=== PATIENT | female | born 1990 | race Caucasian/White ===

== ENCOUNTER 2019-08-13 13:18 | Emergency (ER) | payer OTHER ==
[2019-08-13 13:49] LABS: #Lymphocytes 1.1 thou/uL (1.20-3.40); #Monocytes 0.2 thou/uL (0.11-0.59); #Neutrophils 7.3 thou/uL (1.40-6.50); %Basophils 0.2 % (0.0-1.0); %Eosinophils 0.3 % (0.0-10.0); %Lymphocytes 12.5 % (21.0-51.0); %Monocytes 2.8 % (0.0-10.0); %Neutrophils 84.2 % (42.0-75.0); Mean Corpuscular HGB CONC 34.3 g/dL (32.0-36.0); Mean Corpuscular Hemoglobin 32.4 pg (27.0-31.0); Mean Corpuscular Volume 94.5 fL (78.0-98.0); Mean Platelet Volume 7.5 fL (7.4-10.4); Platelet Count 246 thou/uL (130-400); RBC Distribution Width 10.9 % (11.5-14.5); Red Blood Cell (RBC) Count 4.33 mill/uL (4.20-5.40); White Blood Cell (WBC) Count 8.6 thou/uL (4.8-10.8)
[2019-08-13] MEDS ORDERED: Ketorolac Tromethamine 30 MG/ML VIAL ONE (13:59)
[2019-08-13] MEDS ORDERED: diphenhydrAMINE 50 MG/ML VIAL ONE (13:59)
[2019-08-13] MEDS ORDERED: Metoclopramide HCl 10 MG/2 ML VIAL ONE (13:59)
[2019-08-13 14:06] LABS: BHCG - Serum Negative (NEGATIVE); Pregs Control Background? CLEAR/WHITE (CLR/WHITE); Pregs Control Bar Appear? YES (CONTROL BAR)
[2019-08-13 14:11] LABS: ALT (SGPT) 11 U/L (8-55); AST (SGOT) 18 U/L (5-34); Albumin 4.3 g/dL (3.5-5.0); Alkaline Phosphatase 71 U/L (40-110); Anion Gap 14 mmol/L (10-20); BUN (Urea Nitrogen) 8 mg/dL (7.0-18.7); Bilirubin, Total 0.3 mg/dL (0.2-1.2); Calc. Creatinine Clearance 0 mL/min (70-130); Calcium 9.9 mg/dL (7.8-10.44); Carbon Dioxide 25 mmol/L (22-29); Chloride 103 mmol/L (98-107); Estimated GFR-MDRD Greater than 90; Globulin 3.7 g/dL (2.4-3.5); Glucose 104 mg/dL (70-105); Potassium 3.9 mmol/L (3.5-5.1); Sodium 138 mmol/L (136-145)
--- NOTE | 2019-08-13 14:40 | CT ---
CT BRAIN PERFORMED WITHOUT CONTRAST ENHANCEMENT: History: Headache x two days. FINDINGS: The ventricular and cisternal system is within normal limits. There are no signs of intracerebral hem orrhage or extraaxial fluid collections. The mastoid air cells and visualized sinuses are clear. IMPRESSION: No acute intracranial abnormalities. POS: [facility]
== END 2019-08-13 15:34 | disposition home or self-care (01) ==
LOC: ERS 13:18
DX: R51 Headache (principal); Z79.899 Other long term (current) drug therapy
CPT/HCPCS: 70450; 80053; 84703; 85025; 96365; 96375; J1200; J1885; J2765

== ENCOUNTER 2019-10-27 12:50 | Inpatient (IN) | payer OTHER ==
[2019-10-27] MEDS ORDERED: Metoclopramide HCl 10 MG/2 ML VIAL ONE (13:10)
[2019-10-27] MEDS ORDERED: diphenhydrAMINE 50 MG/ML VIAL ONE (13:10)
[2019-10-27 13:20] LABS: #Eosinphils 0.1 thou/uL (0.0-0.7); #Lymphocytes 1.8 thou/uL (1.20-3.40); #Monocytes 0.3 thou/uL (0.11-0.59); #Neutrophils 5.4 thou/uL (1.40-6.50); %Basophils 0.2 % (0.0-1.0); %Lymphocytes 23.9 % (21.0-51.0); %Neutrophils 70.8 % (42.0-75.0); Mean Corpuscular HGB CONC 34.2 g/dL (32.0-36.0); Mean Corpuscular Hemoglobin 32.2 pg (27.0-31.0); Mean Corpuscular Volume 94.1 fL (78.0-98.0); Mean Platelet Volume 7.8 fL (7.4-10.4); Platelet Count 243 thou/uL (130-400); RBC Distribution Width 10.9 % (11.5-14.5); Red Blood Cell (RBC) Count 4.05 mill/uL (4.20-5.40); White Blood Cell (WBC) Count 7.6 thou/uL (4.8-10.8)
[2019-10-27] MEDS ORDERED: Ondansetron PF 4 MG/2 ML Vial ONE (13:23)
--- NOTE | 2019-10-27 13:23 | CT ---
CT Brain WO Con History: Strokelike symptoms from operating room Comparison: None. Findings: No acute hemorrhage or infarct. No midline shift or mass effect. Ventricular size and extra -axial CSF spaces are normal. The calvarium is intact. Paranasal sinuses and mastoids are clear. Globes are intact. Impression: No acute intracranial abnormality.
[2019-10-27 13:32] LABS: PTT 31.3 sec (22.9-36.1); Prothrombin Time 13.3 sec (12.0-14.7)
[2019-10-27 13:43] LABS: ALT (SGPT) 19 U/L (8-55); AST (SGOT) 23 U/L (5-34); Albumin 4.4 g/dL (3.5-5.0); Alkaline Phosphatase 70 U/L (40-110); Anion Gap 15 mmol/L (10-20); BUN (Urea Nitrogen) 12 mg/dL (7.0-18.7); Bilirubin, Total 0.5 mg/dL (0.2-1.2); CK (CPK) 115 U/L (29-168); Calc. Creatinine Clearance 0 mL/min (70-130); Calcium 9.7 mg/dL (7.8-10.44); Carbon Dioxide 23 mmol/L (22-29); Chloride 102 mmol/L (98-107); Estimated GFR-MDRD 85; Globulin 2.9 g/dL (2.4-3.5); Glucose 95 mg/dL (70-105); Potassium 3.6 mmol/L (3.5-5.1); Protein, Total 7.3 g/dL (6.0-8.3); Sodium 136 mmol/L (136-145)
[2019-10-27 14:35] LABS: BHCG - Serum Negative (NEGATIVE); Pregs Control Background? CLEAR/WHITE (CLR/WHITE); Pregs Control Bar Appear? YES (CONTROL BAR)
[2019-10-27] MEDS ORDERED: Aspirin 325 MG TAB ONE (14:39)
[2019-10-27] MEDS ORDERED: Ondansetron ODT 8 MG TAB SL PRN (15:38)
--- NOTE | 2019-10-27 16:25 | PDOC.HHP ---
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 Pt reports that she was working in the hospital today and had a migraine at 11am. Her migraine symptoms included global head pain, blurry vision , and photophobia. Migraine described as throbbing. Pt took Aleve and Excedrin at 11:30 with minimal improvement in her symptoms. At approximately noon, she became acutely confused, noticed tingling in her L arm with numbness and heaviness following. At the same time she felt the left side of her face become numb to the midline. Co-workers witnessed a L facial droop when they asked the pt to smile. Symptoms lasted approximately 15-20 minutes and are now completely resolved. 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 Her last seizure was in 2018. She has had them since she was 2 years old intermittently and reports they are well controlled on Vimpat. She follows with neurologist Dr. Wynn at [facility]. She denied fevers, chills, neck stiffness, dysphagia, drooling, leg numbness Her prior migraines started a few months ago with the first being mild throbbing with photosensitivity. The second migraine awoke patient from sleep and she described as "worst headache of my life" prompting an ER visit on . Head CT at that time was negative. She received abortive medications and was discharged. Pt uses an IUD for control, is a non-smoker and denies history of hypertension. Denies family history of strokes, clots, or blood disorders. Does report family history of heart disease on her mother's side. ED Course: In the ED, head CT showed no acute abnormalities. EKG showed NSR with no ischemic changes. Initial labs including CMP, CBC, and troponin were all wnl. Blood glucose 95. Pt received ASA 325 mg, and migraine cocktail including metoclopramide, benadryl, and zofran. Pt had complete resolution of her symptoms so tpa was not warranted on arrival to the ED. Hospitalist ROS - Review of Systems Constitutional: denies: fever, chills, sweats, weakness, malaise, other Eyes: reports: vision change (blurry). denies: pain, conjunctivae inflammation , eyelid inflammation, redness, other ENT: denies: ear pain, ear discharge, nose pain, nose discharge, nose congestion , mouth pain, mouth swelling, throat pain, throat swelling, other Respiratory: denies: cough, dry, shortness of breath, hemoptysis, SOB with excertion, pleuritic pain, sputum, wheezing, other Cardiovascular: denies: chest pain, palpitations, orthopnea, paroxysmal noc. dyspnea, edema, light headedness, other Gastrointestinal: denies: nausea, vomiting, abdominal pain, diarrhea, constipation, melena, hematochezia, other Genitourinary: denies: dysuria, frequency, incontinence, hematuria, retention, other Musculoskeletal: denies: neck pain, shoulder pain, arm pain, back pain, hand pain, leg pain, foot pain, other Skin: denies: rash, lesions, paddy, bruising, other Neurological: reports: weakness, numbness, confusion, seizures. denies: incoordination, change in speech Hospitalist History - Past Medical History Cardiac: reports: no pertinent history Pulmonary: reports: no pertinent history [employer]: reports: Migraine, Seizure Gastrointestinal: reports: no pertinent history Heme/Onc: reports: no pertinent history Hepatobiliary: reports: no pertinent history Psych: reports: no pertinent history Musculoskeletal: reports: no pertinent history Rheumatologic: reports: no pertinent history Infectious Disease: reports: no pertinent history ENT: reports: no pertinent history Renal/: reports: no pertinent history Endocrine: reports: no pertinent history Dermatology: reports: no pertinent history - Past Surgical History Other Surgical History: Ankle ligamentous repair - Family History Family History: reports: cardiac disorder (Maternal Grandmother with CABG) - Social History Smoking Status: Former smoker (Former social smoker >4 years ago SMoked marijuana one month ago) Alcohol: reports: Occassional Drugs: reports: none Living Situation: With Family Occupation: Patient is an OR nurse at [employer] Activity level: independent ambulation - Exam General Appearance: NAD, awake alert Eye: PERRL, anicteric sclera ENT: normocephalic atraumatic, no oropharyngeal lesions, moist mucosa Neck: supple, symmetric, no JVD, no thyromegaly, no lymphadenopathy, no carotid bruit Heart: RRR, no murmur, no gallops, no rubs, normal peripheral pulses Respiratory: CTAB, no wheezes, no rales, no ronchi, normal chest expansion, no tachypnea, normal percussion Gastrointestinal: soft, non-tender, non-distended, normal bowel sounds, no palpable masses, no hepatomegaly, no splenomegaly, no bruit Extremities: no cyanosis, no clubbing, no edema Skin: normal turgor, no lesions, no rashes Neurological: cranial nerve grossly intact, normal sensation to touch, no weakness, no focal deficits Neurological - other findings: FTN nl, BRETT intact, no visual deficits, reflexes 2+ Musculoskeletal: normal tone, normal strength, no muscle wasting Psychiatric: normal affect, normal behavior, A&O x 3 Hospitalist Results - Labs Result Diagrams: 10/27/19 13:11 10/28/19 05:15 Lab results: WBC 7.6 thou/uL (4.8-10.8) 10/27/19 13:11 Hgb 13.0 g/dL (12.0-16.0) 10/27/19 13:11 Hct 38.1 % (36.0-47.0) 10/27/19 13:11 MCV 94.1 fL (78.0-98.0) 10/27/19 13:11 Plt Count 243 thou/uL (130-400) 10/27/19 13:11 Neutrophils % 70.8 % (42.0-75.0) 10/27/19 13:11 Sodium 136 mmol/L (136-145) 10/27/19 13:11 Potassium 3.6 mmol/L (3.5-5.1) 10/27/19 13:11 Chloride 102 mmol/L (98-107) 10/27/19 13:11 Carbon Dioxide 23 mmol/L (22-29) 10/27/19 13:11 BUN 12 mg/dL (7.0-18.7) 10/27/19 13:11 Creatinine 0.79 mg/dL (0.6-1.1) 10/27/19 13:11 Glucose 95 mg/dL (70-105) 10/27/19 13:11 Calcium 9.7 mg/dL (7.8-10.44) 10/27/19 13:11 Total Bilirubin 0.5 mg/dL (0.2-1.2) 10/27/19 13:11 AST 23 U/L (5-34) 10/27/19 13:11 ALT 19 U/L (8-55) 10/27/19 13:11 Alkaline Phosphatase 70 U/L (40-110) 10/27/19 13:11 Creatine Kinase 115 U/L (29-168) 10/27/19 13:11 Troponin I Less than 0.010 ng/mL (< 0.028) 10/27/19 13:11 Serum Total Protein 7.3 g/dL (6.0-8.3) 10/27/19 13:11 Albumin 4.4 g/dL (3.5-5.0) 10/27/19 13:11 Laboratory Tests 10/27/19 10/27/19 10/27/19 12:59 13:11 13:11 WBC RBC Hgb Hct MCV MCH MCHC RDW Plt Count MPV Neutrophils % Lymphocytes % Monocytes % Eosinophils % Basophils % Neutrophils # Lymphocytes # Monocytes # Eosinophils # Basophils # PT INR APTT Sodium 136 Potassium 3.6 Chloride 102 Carbon Dioxide 23 Anion Gap 15 BUN 12 Creatinine 0.79 Estimated GFR (MDRD) 85 Glucose 95 POC Glucose 95 Calcium 9.7 Total Bilirubin 0.5 AST 23 ALT 19 Alkaline Phosphatase 70 Creatine Kinase 115 Troponin I Less than 0.010 Serum Total Protein 7.3 Albumin 4.4 Globulin 2.9 Albumin/Globulin Ratio 1.5 Serum , Qual Blood Type Antibody Screen 10/27/19 10/27/19 10/27/19 13:11 13:11 13:11 WBC 7.6 RBC 4.05 L Hgb 13.0 Hct 38.1 MCV 94.1 MCH 32.2 H MCHC 34.2 RDW 10.9 L Plt Count 243 MPV 7.8 Neutrophils % 70.8 Lymphocytes % 23.9 Monocytes % 4.0 Eosinophils % 1.0 Basophils % 0.2 Neutrophils # 5.4 Lymphocytes # 1.8 Monocytes # 0.3 Eosinophils # 0.1 Basophils # 0.0 PT INR APTT Sodium Potassium Chloride Carbon Dioxide Anion Gap BUN Creatinine Estimated GFR (MDRD) Glucose POC Glucose Calcium Total Bilirubin AST ALT Alkaline Phosphatase Creatine Kinase Troponin I Serum Total Protein Albumin Globulin Albumin/Globulin Ratio Serum , Qual Negative Blood Type O POSITIVE Antibody Screen NEGATIVE 10/27/19 10/27/19 13:12 13:25 WBC RBC Hgb Hct MCV MCH MCHC RDW Plt Count MPV Neutrophils % Lymphocytes % Monocytes % Eosinophils % Basophils % Neutrophils # Lymphocytes # Monocytes # Eosinophils # Basophils # PT 13.3 INR 1.0 APTT 31.3 Sodium Potassium Chloride Carbon Dioxide Anion Gap BUN Creatinine Estimated GFR (MDRD) Glucose POC Glucose Calcium Total Bilirubin AST ALT Alkaline Phosphatase Creatine Kinase Troponin I Serum Total Protein Albumin Globulin Albumin/Globulin Ratio Serum , Qual Blood Type O POSITIVE Antibody Screen - Radiology Interpretation CT scan - head Status: image reviewed by me (No acute abnormalities) Hospitalist H&P A/P - Problem (1) TIA (transient ischemic attack) Code(s): G45.9 - TRANSIENT CEREBRAL ISCHEMIC ATTACK, UNSPECIFIED Status: Acute (2) Seizure disorder Code(s): G40.909 - EPILEPSY, UNSP, NOT INTRACTABLE, WITHOUT STATUS EPILEPTICUS Status: Acute (3) Migraine Code(s): G43.909 - MIGRAINE, UNSP, NOT INTRACTABLE, WITHOUT STATUS MIGRAINOSUS Status: Acute - Plan Plan: CT CXr RM Assessment: This is a 29 year old female with migraines, seizure disorder that presented with transient left arm numbness/weakness/facial droop and severe headache that resolved, admitted for stroke rule out #Left facial droop #LUE numbness - she presented with transient L arm numbness/weakness and L facial numbness and facial droop lasting 15-[address] in ED negative. Initial labs do not show any electrolyte abnormalities. Symptoms now completely resolved with a benign neuro exam. Differential includes most likely complex migraine vs seizure vs TIA. No family history, OCP use, or hx of hypertension. Does report that she was a former smoker >4 years ago and only smoked socially. PLAN: -Telemetry -MRI brain -Neurology consult -Lipid panel, HgA1c, TSH -Repeat CMP, CBC in am -q4 neuro checks -Stroke floor -Consider ECHO with bubble study to assess for PFO Migraine Recent hx of migraines beginning a few months ago. Pt only reports 2 prior migraines including a prior ER visit with nl CT scan for headache that awoke her from sleep. Migraine today was self-treated with Aleve and Excedrin. Pt also received migraine cocktail (zofran, metaclopramide, benadryl) in ED with resolution of her symptoms. Focal deficits could be attributable to complex migraine. PLAN: - reglan prn for headache -Zofran 4 mg PRN nausea -Continue to monitor Seizure Disorder History of seizure disorder, well controlled on Vimpat. Pt follows with neurologist Dr. Wynn from [facility]. Pt describes complex partial seizures. ?Ricardo's Paralysis, although history seems more consistent with complex migraine PLAN: -Continue Vimpat 100 mg qam, 50 mg qpm -Neurology consult -q4 neurochecks DVT prophylaxis: no pharm since pt low risk, SCDs, encourage ambulation FULL CODE Case discussed with attending physician Dr. Mendez. -----Addendum-------- I saw and evaluated patient with PA and agree with assessment and plan Patient reports acute headache that started where she felt the schedule she was reading was very bright. Headache was frontal, throbbing, bilateral and pulsating. She also had photophobia, nausea but no vomiting. She had no neck stiffness or rigidity. No fevers or chills. Her headache improved some after NSAIDS but not much. An hour later she got left facial droop, and arm numbness/ weakness. She was unable to lift up her left arm. She immediately ran and called her welfare supervisor and another doctor who advised her to go to the ER. After coming to the ER, she received migraine cocktail. Her arm numbness wenta way after twenty minutes, but headache lasted longer but eventually resolved as well. She denied dysphagia, dysarthria, leg weakness, gait instability Physical exam: Vitals: stable Neuro: CN II-XII intact. Normal cerebellar exam. 1+ patellar reflexes, 2+ biceps /brachioradialis, negative Babinski. 5/5 strength upper and lower extremities. Intact sensation in upper and lower extremities . PERRLA ,no nystagmus CV: RRR, no murmurs, rubs, gallops Lungs: CTAB Abdomen: +BS, soft, nontender, nondistended MSK: full range of motion Labs; unremarkable MRI brain: no stroke A/P: Left facial droop/arm numbness/weakness - likely complex migraine, vs TIA - will monitor on tele - check ECHO - continue headache medicine prn - neurochecks q4 hours - neuro consult in am - will do aspirin and statin empirically for now Partial Complex Seizures - continue vimpat
--- NOTE | 2019-10-27 16:32 | MRI ---
MRI BRAIN NONCONTRAST: DATE: 10/27/2019 HISTORY: 29-year-old female with TIA: Left upper extremity and left facial weakness. FINDINGS: The ventricles are normal in size and configuration. Tiny focal T2 hyperintense and FLAIR hyperintens e signal abnormality in right frontal deep white matter, nonspecific. Favored to represent migraine lesion or minimal chronic ischemic white matter change. Otherwise there is no major intra-axial signa l abnormality, restricted diffusion, midline shift or any other mass effect, recent intra-axial hemorrhage, or extra-axial fluid collection. IMPRESSION: Essentially normal.
[2019-10-27 16:38] VITALS: BMI 28.7
[2019-10-27] MEDS ORDERED: Lacosamide 50 mg Tablet PO SCH (21:30)
[2019-10-28 05:46] LABS: Hemoglobin A1c 4.7 % (4.0-6.0)
[2019-10-28 06:09] LABS: ALT (SGPT) 14 U/L (8-55); AST (SGOT) 18 U/L (5-34); Albumin 3.9 g/dL (3.5-5.0); Alkaline Phosphatase 64 U/L (40-110); Anion Gap 11 mmol/L (10-20); BUN (Urea Nitrogen) 11 mg/dL (7.0-18.7); Bilirubin, Total 0.4 mg/dL (0.2-1.2); Calc. Creatinine Clearance 138 mL/min (70-130); Calcium 9.2 mg/dL (7.8-10.44); Carbon Dioxide 26 mmol/L (22-29); Cardiac Risk 2.4 (Less than 4.5); Chloride 105 mmol/L (98-107); Cholesterol 152 mg/dl (< 200 Desired); Estimated GFR-MDRD 89; Globulin 2.9 g/dL (2.4-3.5); Glucose 87 mg/dL (70-105); HDL Cholesterol 63 mg/dL (>60 Neg Risk); LDL Cholesterol, Calculated 83 mg/dL; Protein, Total 6.8 g/dL (6.0-8.3); Sodium 138 mmol/L (136-145); Triglycerides 32 mg/dL (Less than 150)
[2019-10-28] MEDS ORDERED: Aspirin 81 mg Enteric Coated Tablet PO SCH (09:00)
[2019-10-28] MEDS ORDERED: Lacosamide 50 mg Tablet PO SCH ×2 (09:00→21:00)
[2019-10-28] MEDS ORDERED: Aspirin 325 MG TAB PO SCH (09:00)
--- NOTE | 2019-10-28 10:24 | PDOC.HOSPP ---
- Subjective Encounter Date: 10/28/19 Subjective: The patient stated that her symptoms have resolved. - Objective Vital Signs & Weight: Vital Signs (12 hours) Temp Pulse Resp BP Pulse Ox 10/28/19 07:13 98.1 F 61 16 111/65 99 10/28/19 03:12 97.7 F 78 16 104/66 98 10/27/19 23:55 97.7 F 82 18 99/65 97 Weight Weight 177 lb 12.8 oz I&O: 10/27/19 10/28/19 10/29/19 06:59 06:59 06:59 Intake Total 240 Balance 240 Result Diagrams: 10/27/19 13:11 10/28/19 05:15 Additional Labs: Accuchecks 10/27/19 12:59 POC Glucose 95 Hospitalist ROS - Medication Medications: Active Medications Generic Name Dose Route Start Last Admin Trade Name Freq PRN Reason Stop Dose Admin Aspirin 325 mg 10/28/19 09:00 10/28/19 09:01 Aspirin PO 325 mg DAILY JOHANNA Administration Lacosamide 100 mg 10/28/19 09:00 10/28/19 09:01 Vimpat PO 100 mg QAM JOHANNA Administration Sodium Chloride 10 ml 10/27/19 15:28 10/28/19 09:02 Flush - Normal Saline IVF 10 ml PRN PRN Administration Saline Flush - Exam General Appearance: awake alert ENT: normocephalic atraumatic Neck: supple, no JVD Heart: RRR (On the monitor) Respiratory: normal chest expansion, no tachypnea Neurological: cranial nerve grossly intact, no new deficit Hosp A/P (1) Migraine Code(s): G43.909 - MIGRAINE, UNSP, NOT INTRACTABLE, WITHOUT STATUS MIGRAINOSUS Status: Acute (2) Seizure disorder Code(s): G40.909 - EPILEPSY, UNSP, NOT INTRACTABLE, WITHOUT STATUS EPILEPTICUS Status: Acute (3) TIA (transient ischemic attack) Code(s): G45.9 - TRANSIENT CEREBRAL ISCHEMIC ATTACK, UNSPECIFIED Status: Acute - Plan Differential diagnosis for the patient's symptoms are the conditions listed above. MRI of the brain unremarkable. Given her age TIA will be the least likely explanation. Check echocardiogram. The likely conditions are complex migraine versus partial seizures. The patient is undergoing EEG today. Continue current medications.
--- NOTE | 2019-10-28 12:18 | CON ---
NEUROLOGY CONSULTATION DATE OF CONSULTATION: 10/28/2019 REASON FOR CONSULTATION: Complicated migraine/left facial droop and left upper extremity paresthesias. 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 on 10/27/2019. The migraine, she describes it as severe throbbing pain, which was not relieved by Excedrin, and then she became confused and felt numbness in her left upper extremity, associated with weakness and also left facial paresthesias with left facial droop. The symptoms lasted for about 15 to 20 minutes, she became concerned and decided to come to the emergency room for further evaluation. The patient does have some nausea and had extreme headache with photophobia, but denies fever, chills, problems with swallowing, problems with speech, chest pain, abdominal pain, recent illness, or exposure to COVID. In the emergency room, head CT was done, which was negative for acute intracranial pathology. EKG showed normal sinus rhythm. She was given migraine cocktail, which includes metoclopramide, Benadryl, and Zofran, which resolved her headache and also her symptoms. She was admitted for further workup. REVIEW OF SYSTEMS: All 14 systems were reviewed and were negative except the pertinent positives and negatives mentioned in the HPI. PAST MEDICAL HISTORY: Migraine, seizure disorder. PAST SURGICAL HISTORY: Ankle ligamentous repair. FAMILY HISTORY: Significant for coronary artery disease. SOCIAL HISTORY: The patient is a former smoker. She denies illegal drug use or alcohol. She is an OR nurse. ALLERGIES; NKDA - Objective Vital Signs & Weight: Vital Signs (12 hours) Temp Pulse Resp BP Pulse Ox 10/28/19 07:13 98.1 F 61 16 111/65 99 10/28/19 03:12 97.7 F 78 16 104/66 98 10/27/19 23:55 97.7 F 82 18 99/65 97 Weight Weight 177 lb 12.8 oz I&O: 10/27/19 10/28/19 10/29/19 06:59 06:59 06:59 Intake Total 240 Balance 240 Additional Labs: Accuchecks 10/27/19 12:59 POC Glucose 95 Active Medications Generic Name Dose Route Start Last Admin Trade Name Wilyq PRN Reason Stop Dose Admin Aspirin 325 mg 10/28/19 09:00 10/28/19 09:01 Aspirin PO 325 mg DAILY JOHANNA Administration Lacosamide 100 mg 10/28/19 09:00 10/28/19 09:01 Vimpat PO 100 mg QAM JOHANNA Administration Sodium Chloride 10 ml 10/27/19 15:28 10/28/19 09:02 Flush - Normal Saline IVF 10 ml PRN PRN Administration Saline Flush - Exam General Appearance: awake alert ENT: normocephalic atraumatic Neck: supple, no JVD Heart: RRR Respiratory: normal chest expansion, no tachypnea Neurological: Mental status; the patient is alert and oriented to person, place , and time. Recent and remote memory, intact. Fund of knowledge is appropriate. Speech is clear. Cranial nerves 2 through 12 intact. Motor; muscle tone and bulk are normal. Strength 5/5 bilaterally. Sensory intact. Gait deferred because of the patient's safety reason. : LABORATORY AND DIAGNOSTIC DATA: Data reviewed. I reviewed the labs, which were essentially unremarkable. MRI of the brain reviewed, which was negative for acute intracranial pathology. EEG was reviewed, which was negative for seizure activity. Lab results: WBC 7.6 thou/uL (4.8-10.8) 10/27/19 13:11 Hgb 13.0 g/dL (12.0-16.0) 10/27/19 13:11 Hct 38.1 % (36.0-47.0) 10/27/19 13:11 MCV 94.1 fL (78.0-98.0) 10/27/19 13:11 Plt Count 243 thou/uL (130-400) 10/27/19 13:11 Neutrophils % 70.8 % (42.0-75.0) 10/27/19 13:11 Sodium 136 mmol/L (136-145) 10/27/19 13:11 Potassium 3.6 mmol/L (3.5-5.1) 10/27/19 13:11 Chloride 102 mmol/L (98-107) 10/27/19 13:11 Carbon Dioxide 23 mmol/L (22-29) 10/27/19 13:11 BUN 12 mg/dL (7.0-18.7) 10/27/19 13:11 Creatinine 0.79 mg/dL (0.6-1.1) 10/27/19 13:11 Glucose 95 mg/dL (70-105) 10/27/19 13:11 Calcium 9.7 mg/dL (7.8-10.44) 10/27/19 13:11 Total Bilirubin 0.5 mg/dL (0.2-1.2) 10/27/19 13:11 AST 23 U/L (5-34) 10/27/19 13:11 ALT 19 U/L (8-55) 10/27/19 13:11 Alkaline Phosphatase 70 U/L (40-110) 10/27/19 13:11 Creatine Kinase 115 U/L (29-168) 10/27/19 13:11 Troponin I Less than 0.010 ng/mL (< 0.028) 10/27/19 13:11 Serum Total Protein 7.3 g/dL (6.0-8.3) 10/27/19 13:11 Albumin 4.4 g/dL (3.5-5.0) 10/27/19 13:11 Laboratory Tests 10/27/19 10/27/19 10/27/19 12:59 13:11 13:11 WBC RBC Hgb Hct MCV MCH MCHC RDW Plt Count MPV Neutrophils % Lymphocytes % Monocytes % Eosinophils % Basophils % Neutrophils # Lymphocytes # Monocytes # Eosinophils # Basophils # PT INR APTT Sodium 136 Potassium 3.6 Chloride 102 Carbon Dioxide 23 Anion Gap 15 BUN 12 Creatinine 0.79 Estimated GFR (MDRD) 85 Glucose 95 POC Glucose 95 Calcium 9.7 Total Bilirubin 0.5 AST 23 ALT 19 Alkaline Phosphatase 70 Creatine Kinase 115 Troponin I Less than 0.010 Serum Total Protein 7.3 Albumin 4.4 Globulin 2.9 Albumin/Globulin Ratio 1.5 Serum , Qual Blood Type Antibody Screen 10/27/19 10/27/19 10/27/19 13:11 13:11 13:11 WBC 7.6 RBC 4.05 L Hgb 13.0 Hct 38.1 MCV 94.1 MCH 32.2 H MCHC 34.2 RDW 10.9 L Plt Count 243 MPV 7.8 Neutrophils % 70.8 Lymphocytes % 23.9 Monocytes % 4.0 Eosinophils % 1.0 Basophils % 0.2 Neutrophils # 5.4 Lymphocytes # 1.8 Monocytes # 0.3 Eosinophils # 0.1 Basophils # 0.0 PT INR APTT Sodium Potassium Chloride Carbon Dioxide Anion Gap BUN Creatinine Estimated GFR (MDRD) Glucose POC Glucose Calcium Total Bilirubin AST ALT Alkaline Phosphatase Creatine Kinase Troponin I Serum Total Protein Albumin Globulin Albumin/Globulin Ratio Serum , Qual Negative Blood Type O POSITIVE Antibody Screen NEGATIVE 10/27/19 10/27/19 13:12 13:25 WBC RBC Hgb Hct MCV MCH MCHC RDW Plt Count MPV Neutrophils % Lymphocytes % Monocytes % Eosinophils % Basophils % Neutrophils # Lymphocytes # Monocytes # Eosinophils # Basophils # PT 13.3 INR 1.0 APTT 31.3 Sodium Potassium Chloride Carbon Dioxide Anion Gap BUN Creatinine Estimated GFR (MDRD) Glucose POC Glucose Calcium Total Bilirubin AST ALT Alkaline Phosphatase Creatine Kinase Troponin I Serum Total Protein Albumin Globulin Albumin/Globulin Ratio Serum , Qual Blood Type O POSITIVE Antibody Screen - Radiology Interpretation CT scan - head Status: image reviewed by me (No acute abnormalities) ASSESSMENT AND PLAN: (1) Migraine Code(s): G43.909 - MIGRAINE, UNSP, NOT INTRACTABLE, WITHOUT STATUS MIGRAINOSUS Status: Acute (2) Seizure disorder Code(s): G40.909 - EPILEPSY, UNSP, NOT INTRACTABLE, WITHOUT STATUS EPILEPTICUS Status: Acute Ms. Silva Shen is a 29-year-old female with a history significant for migraines and seizure disorder, presented with acute-onset left facial paresthesias, left facial droop, and left upper extremity weakness and paresthesias, which were resolved after 15 to 20 minutes after she was treated with migraine cocktail, most likely focal deficits due to complicated migraine with neurological features. The patient is back to her baseline. MRI of the brain reviewed, which was negative for acute intracranial processes. EEG reviewed, which is normal and did not show any ongoing seizure activity. Continue neuro checks every 4 hours. The patient is back to her baseline. Continue home dose of Vimpat. Continue home medications. Continue medical management per Primary Team. No further recommendations from Neurology perspective. Plan discussed with the patient and with the nursing staff and also the test results. Thank you for the consult. Job ID: [id number] [facility] HOSPITALBenita
[2019-10-28 14:06] LABS: SARS-CoV-2 MS2 Positive; SARS-CoV-2 N Gene Negative; SARS-CoV-2 S Gene Negative; SARS-CoV-2 by NAA Not Detected (NotDetected); SARS-CoV-2 orf1ab Negative
[2019-10-28 15:59] VITALS: BP 112/66; TEMP 98
--- NOTE | 2019-10-30 07:34 | DIS ---
DATE OF ADMISSION: 10/27/2019 DATE OF DISCHARGE: 10/28/2019 DISCHARGE DIAGNOSES: 1. Complex migraine. 2. Seizure disorder. 3. Transient ischemic attack ruled out. DISCHARGE MEDICATIONS: Unchanged from her home medications. HISTORY OF PRESENT ILLNESS AND HOSPITAL COURSE: The patient is a 29-year-old female with past medical history of seizure disorder and migraines who presented to the hospital with complaints of headache associated with left facial numbness, facial droop, and left arm weakness. She was placed in observation. Imaging studies for her brain were unremarkable for any acute abnormalities. EEG was performed which did not show any seizure episodes. She was evaluated by Neurology Service and the impression was the patient's episode was related to complex migraine. Neurology recommended the patient to continue her home Vimpat. Job ID: [id number]
--- NOTE | 2019-10-31 10:01 | EEG ---
DATE OF SERVICE: 10/28/2019 ATTENDING PHYSICIAN: Jennifer Mason MD This EEG was performed using 24-channel [employer] video digital EEG machine with 24-disk electrodes. This was an extended 2 hours 6 minutes of inpatient video EEG recording. Digital analysis of the EEG was done for spike and seizure detection, which revealed no abnormalities. BACKGROUND: The posterior background rhythm is 9 to 10 hertz. The background rhythm attenuates with eye opening and enhances with eye closure. HYPERVENTILATION: No significant response seen with hyperventilation. PHOTIC STIMULATION: Bioccipital symmetric driving responses observed. SLEEP: Drowsiness is observed. EEG DIAGNOSIS: Normal awake and drowsy EEG. Job ID: [id number]
--- NOTE | 2019-11-04 15:32 | EKG ---
Test Reason : Blood Pressure : / mmHG Vent. Rate : 066 BPM Atrial Rate : 066 BPM P-R Int : 138 ms QRS Dur : 098 ms QT Int : 412 ms P-R-T Axes : 031 054 048 degrees QTc Int : 431 ms Normal sinus rhythm Low voltage QRS Incomplete right bundle branch block Borderline ECG Confirmed by DANK ALONSO DO ([id number]), commissioning editor JOSEPH HONEYCUTT ([id number]) on 11/04/2019 3:32:49 PM Referred By: Confirmed By:DANK ALONSO DO
== END 2019-10-28 17:10 | disposition home or self-care (01) | DRG 103 ==
LOC: ERS 12:50 → 2SE 15:56
PROVIDERS: ADMIT Internal Medicine; ATTEND Internal Medicine
DX: G43.109 Migraine with aura, not intractable, without status migrainosus (principal); G40.909 Epilepsy, unspecified, not intractable, without status epilepticus; Z20.828 Contact with and (suspected) exposure to other viral communicable diseases; Z87.891 Personal history of nicotine dependence; Z79.899 Other long term (current) drug therapy
CPT/HCPCS: 36415; 36416; 70450; 70551; 80053; 80061; 82550; 83036; 84484; 84703; 85025; 85610; 85730; 86850; 86900; 86901; 87635; 93005; 93306; 95712; 95816; 95819; 95957; 96365; 96366; 96375; J1200; J2405; J2765; U0003

== ENCOUNTER 2020-02-21 09:41 | Emergency (ER) | payer OTHER ==
[2020-02-21] MEDS ORDERED: diphenhydrAMINE 50 MG/ML VIAL ONE ×2 (09:54→09:57)
[2020-02-21] MEDS ORDERED: Ketorolac Tromethamine 30 MG/ML VIAL ONE ×2 (09:54→09:57)
[2020-02-21] MEDS ORDERED: Metoclopramide HCl 10 MG/2 ML VIAL ONE ×2 (09:54→09:57)
[2020-02-21 10:10] LABS: #Eosinphils 0.1 thou/uL (0.0-0.7); #Monocytes 0.4 thou/uL (0.11-0.59); #Neutrophils 5.1 thou/uL (1.40-6.50); %Basophils 0.3 % (0.0-1.0); %Eosinophils 1.2 % (0.0-10.0); %Monocytes 5.4 % (0.0-10.0); %Neutrophils 67.1 % (42.0-75.0); Hemoglobin 13.9 g/dL (12.0-16.0); Mean Corpuscular HGB CONC 34.3 g/dL (32.0-36.0); Mean Corpuscular Hemoglobin 31.8 pg (27.0-31.0); Mean Corpuscular Volume 92.7 fL (78.0-98.0); Mean Platelet Volume 7.6 fL (7.4-10.4); Platelet Count 246 thou/uL (130-400); RBC Distribution Width 11.1 % (11.5-14.5); Red Blood Cell (RBC) Count 4.37 mill/uL (4.20-5.40); White Blood Cell (WBC) Count 7.6 thou/uL (4.8-10.8)
[2020-02-21] MEDS ORDERED: Ondansetron PF 4 MG/2 ML Vial ONE (10:15)
[2020-02-21 10:24] LABS: BHCG - Serum Negative (NEGATIVE); Pregs Control Background? CLEAR/WHITE (CLR/WHITE); Pregs Control Bar Appear? YES (CONTROL BAR)
[2020-02-21] MEDS ORDERED: Magnesium 2 GM/50 ML BAG (IN WATER) ONE (10:48)
[2020-02-21] MEDS ORDERED: methylPREDNISolone Sod Succ/PF 125 MG/2 ML VIAL ONE (10:49)
[2020-02-21 11:03] LABS: ALT (SGPT) 24 U/L (8-55); AST (SGOT) 28 U/L (5-34); Albumin 4.7 g/dL (3.5-5.0); Alkaline Phosphatase 73 U/L (40-110); Anion Gap 18 mmol/L (10-20); BUN (Urea Nitrogen) 18 mg/dL (7.0-18.7); Bilirubin, Total 0.8 mg/dL (0.2-1.2); Calc. Creatinine Clearance 0 mL/min (70-130); Calcium 9.9 mg/dL (7.8-10.44); Carbon Dioxide 19 mmol/L (22-29); Chloride 101 mmol/L (98-107); Globulin 3.5 g/dL (2.4-3.5); Glucose 125 mg/dL (70-105); Potassium 3.4 mmol/L (3.5-5.1); Protein, Total 8.2 g/dL (6.0-8.3); Sodium 135 mmol/L (136-145)
== END 2020-02-21 13:29 | disposition home or self-care (01) ==
LOC: ERS 09:41
DX: R51.9 Headache, unspecified (principal)
CPT/HCPCS: 80053; 84703; 85025; 96365; 96375; J1200; J1885; J2405; J2765; J2930; J3475